=== PATIENT | female | born 1980 | race African-American/Black ===

== ENCOUNTER → 2016-07-31 | Emergency (ER) | payer OTHER ==
[~2016-07-31] MED LIST: CEPHALEXIN MONOHYDRATE 250 MG CAPSULE (FP) ONE; CEPHALEXIN MONOHYDRATE 500 MG CAPSULE (UD) PO ONE; IBUPROFEN 600 MG TABLET (FP) PO ONE; SODIUM CHLORIDE 1,000 ML IV STA; SULFAMETHOXAZOLE/TRIMETHOPRIM 800MG/160MG D.S. TABLET ONE; SULFAMETHOXAZOLE/TRIMETHOPRIM 800MG/160MG D.S. TABLET PO ONE
[2016-07-31 21:42] VITALS: BP 136/77; PULSE 82; TEMP 97.5; BMI 28.0
--- NOTE | 2016-07-31 23:15 | PDOC ---
History of Present Illness - General History Source: Patient Exam Limitations: No Limitations - History of Present Illness Initial Comments: 07/31/16 23:18 The patient is a 35 year old female, with a significant past medical history of anemia, multiple pelvic abscesses, HTN, ARDS, colitis, sepsis, and fibroids who presents to the emergency department with lower abdominal pain and rectal pain for the past week. She ranks her pain a 5/10 in pain intensity. She denies fever, chills, headache and dizziness. She denies nausea, vomit, diarrhea and constipation. Patient is a poor historian. Allergies: NKA Past surgical history: Salpingectomy, Appendectomy, and Myomectomy (October 2015). Social history: Nonsmoker. Denies EtOH use and drug use. PCP: Dr. Styles <Kaleb Pederson - Last Filed: 07/31/16 23:17> <Deloris Trinidad - Last Filed: 08/01/16 02:17> - General Chief Complaint: Pain Stated Complaint: AB PAIN Time Seen by Provider: 07/31/16 21:50 Past History <Kaleb Pederson - Last Filed: 07/31/16 23:17> - Past Medical History Anemia: Yes Asthma: No Cancer: No Cardiac Disorders: No CVA: No COPD: No CHF: No Dementia: No Diabetes: No GI Disorders: No Disorders: No HTN: No Hypercholesterolemia: No Liver Disease: No Seizures: No Thyroid Disease: No - Surgical History Abdominal Surgery: Yes Appendectomy: Yes Cardiac Surgery: No Cholecystectomy: No Lung Surgery: No Neurologic Surgery: No Orthopedic Surgery: No - Immunization History Immunization Up to Date: Yes - Psycho/Social/Smoking Cessation Hx Suicidal Ideation: No Smoking History: Never smoked Have you smoked in the past 12 months: No Number of Cigarettes Smoked Daily: 0 Information on smoking cessation initiated: No Hx Alcohol Use: No Drug/Substance Use Hx: No Substance Use Type: None <Deloris Trinidad - Last Filed: 08/01/16 02:17> - Past Medical History Allergies/Adverse Reactions: Allergies Allergy/AdvReac Type Severity Reaction Status Date / Time No Known Allergies Allergy Verified 07/31/16 21:40 Home Medications: Ambulatory Orders Sulfamethoxazole/Trimethoprim [Bactrim Ds -] 1 tab PO BID #10 tablet 08/01/16 Review of Systems - Review of Systems Able to Perform ROS?: Yes Comments:: 07/31/16 23:17 CONSTITUTIONAL: Absent: fever, chills, diaphoresis, generalized weakness, malaise, loss of appetite HEENT: Absent: rhinorrhea, nasal congestion, throat pain, throat swelling, difficulty swallowing, mouth swelling, ear pain, eye pain, visual Changes CARDIOVASCULAR: Absent: chest pain, syncope, palpitations, irregular heart rate, lightheadedness , peripheral edema RESPIRATORY: Absent: cough, shortness of breath, dyspnea with exertion, orthopnea, wheezing, stridor, hemoptysis GASTROINTESTINAL: Present: abdominal pain and rectal pain. Absent: abdominal distension, nausea, vomiting, diarrhea, constipation, melena, hematochezia GENITOURINARY: Absent: dysuria, frequency, urgency, hesitancy, hematuria, flank pain, genital pain MUSCULOSKELETAL: Absent: myalgia, arthralgia, joint swelling SKIN: Absent: rash, itching, pallor HEMATOLOGIC/IMMUNOLOGIC: Absent: easy bleeding, easy bruising, lymphadenopathy, frequent infections ENDOCRINE: Absent: unexplained weight gain, unexplained weight loss, heat intolerance, cold intolerance NEUROLOGIC: Absent: headache, focal weakness or paresthesias, dizziness, unsteady gait, seizure, mental status changes, bladder or bowel incontinence PSYCHIATRIC: Absent: anxiety, depression, suicidal or homicidal ideation, hallucinations. <Kaleb Pederson - Last Filed: 07/31/16 23:17> *Physical Exam - Vital Signs Last Vital Signs Temp Pulse Resp BP Pulse Ox 97.5 F L 82 14 136/77 99 07/31/16 21:40 07/31/16 21:40 07/31/16 21:40 07/31/16 21:40 07/31/16 21:40 - Physical Exam Comments: 07/31/16 23:18 GENERAL: Well developed, well nourished. Awake and alert. No acute distress. HEENT: Normocephalic, atraumatic. PERRLA, EOMI. No conjunctival pallor. Sclera are non- icteric. Moist mucous membranes. Oropharynx is clear. NECK: Supple. Full ROM. No JVD. Carotid pulses 2+ and symmetric, without bruits. No thyromegaly. No lymphadenopathy. CARDIOVASCULAR: Regular rate and rhythm. No murmurs, rubs, or gallops. Distal pulses are 2+ and symmetric. PULMONARY: No evidence of respiratory distress. Lungs clear to auscultation bilaterally. No wheezing, rales or rhonchi. ABDOMINAL: Soft. Non-tender. Non-distended. No rebound or guarding. No organomegaly. Normoactive bowel sounds. Long midline well healed. No external hemorrhoids appreciated. MUSCULOSKELETAL Normal range of motion at all joints. No bony deformities or tenderness. No CVA tenderness. EXTREMITIES: No cyanosis. No clubbing. No edema. No calf tenderness. SKIN: Warm and dry. Normal capillary refill. No rashes. No jaundice. NEUROLOGICAL: Alert, awake, appropriate. Cranial nerves 2-12 intact. No deficits to light touch and temperature in face, upper extremities and lower extremities. No motor deficits in the in face, upper extremities and lower extremities. Normoreflexic in the upper and lower extremities. Normal speech. Toes are down- going bilaterally. Gait is normal without ataxia. PSYCHIATRIC: Cooperative. Good eye contact. Appropriate mood and affect. <Kaleb Pederson - Last Filed: 07/31/16 23:17> - Vital Signs Last Vital Signs Temp Pulse Resp BP Pulse Ox 97.5 F L 82 14 136/77 99 07/31/16 21:40 07/31/16 21:40 07/31/16 21:40 07/31/16 21:40 07/31/16 21:40 <Deloris Trinidad - Last Filed: 08/01/16 02:17> ED Treatment Course - LABORATORY CBC & Chemistry Diagram: 07/31/16 23:55 08/01/16 00:01 <Deloris Trinidad - Last Filed: 08/01/16 02:17> Medical Decision Making - Medical Decision Making 08/01/16 00:56 35 yo female presents because she has had 1 week of rectal pain-she denies any bleeding,any trauma,denies hemorrhoids -she also has a vague complaint of abdominal pain -she has a soft abdomen w no rebound or guarding -rectal exam-normal tone,no bleeding,no hemorrhoids no constitutional symptoms -no fever,no chills,no vomiting,no diarrhea,no severe pelvic pain 08/01/16 02:11 reviewed abd film no evidence of sbo,no fecal impaction cbc wnl chemistry wnl ua neg preg neg -pt told to return if her pain becomes worse or if it becomes focal, if she dev a fever or persistence vomiting <Deloris Trinidad - Last Filed: 08/01/16 02:17> *DC/Admit/Observation/Transfer - Attestations Scribe Attestion: 07/31/16 23:18 Documentation prepared by Kaleb Pederson, acting as special forces medical sergeant for Deloris Trinidad MD. 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
[2016-08-01 00:16] LABS: BASOPHIL 0.6 % (0-2.0); EOSINOPHIL 5.6 % (0-4.5); MCH 28.7 pg (25.7-33.7); MCHC 33.6 g/dl (32.0-36.0); MEAN CELL VOLUME 85.4 fl (80-96); MEAN PLT VOLUME 8.2 fl (7.5-11.1); NEUTROPHILS 49.1 % (42.8-82.8); PLATELET COUNT 223 K/MM3 (134-434); RDW 12.8 % (11.6-15.6); WHITE BLOOD COUNT 5.9 K/mm3 (4.0-10.0)
[2016-08-01 00:32] LABS: URINE APPEARANCE CLEAR; URINE BILIRUBIN NEGATIVE (NEGATIVE); URINE COLOR STRAW; URINE GLUCOSE (UA) NEGATIVE (NEGATIVE); URINE KETONE NEGATIVE (NEGATIVE); URINE NITRITE NEGATIVE (NEGATIVE); URINE PROTEIN NEGATIVE (NEGATIVE); URINE UROBILINOGEN NEGATIVE E.U./dl (0.2-1.0)
[2016-08-01 00:36] LABS: URINE BLOOD 2+ (NEGATIVE); URINE LEUK ESTERASE 1+ (NEGATIVE)
[2016-08-01 00:54] LABS: URINE BACTERIA RARE /hpf (NONE SEEN); URINE RBC 2 /hpf (0-3); URINE WBC 10 /hpf (3-5)
[2016-08-01 01:00] LABS: ALBUMIN 3.6 g/dl (3.4-5.0); ANION GAP 10 (8-16); BILIRUBIN,TOTAL 0.3 mg/dL (0.2-1.0); CALCIUM 8.3 mg/dL (8.5-10.1); CO2 28 mmol/L (21-32); CREATININE 0.8 mg/dL (0.55-1.02); GLUCOSE,RANDOM 96 mg/dL (74-106); SGOT/AST 12 U/L (15-37); SGPT/ALT 15 U/L (12-78); TOT PROT 6.7 g/dl (6.4-8.2)
[2016-08-01 01:01] LABS: ALK PHOS 49 U/L (45-117)
== END | disposition home or self-care (01) ==
LOC: JER 21:22
PROC: 3E0337Z Introduction of Electrolytic and Water Balance Substance into Peripheral Vein, Percutaneous Approach (ICD-10-PCS; principal; 2016-07-31)
DX: K62.89 Other specified diseases of anus and rectum (principal); R10.30 Lower abdominal pain, unspecified
CPT/HCPCS: 36415; 74020-TC; 80053; 81003; 81015; 84703; 85025; 96360; 99282-25

== ENCOUNTER 2018-06-20 16:55 | Emergency (ER) | payer OTHER ==
[2018-06-20 16:58] VITALS: BP 118/69; PULSE 107; TEMP 100.2; BMI 27.3
[2018-06-20] MEDS ORDERED: IBUPROFEN 400 MG TABLET (FP) PO ONE ×2 (17:10→17:22)
--- NOTE | 2018-06-20 17:31 | PDOC ---
History of Present Illness - General Chief Complaint: Cold Symptoms Stated Complaint: COLD SYMPTOMS Time Seen by Provider: 06/20/18 17:00 History Source: Patient Exam Limitations: No Limitations - History of Present Illness Initial Comments: 06/20/18 17:29 37 yr female with headache fever, body aches, sore throat started yesterday. no meds taken [place] [facility]. no foreign travel or sick contacts. no PMHX. Past History - Past Medical History Allergies/Adverse Reactions: Allergies Allergy/AdvReac Type Severity Reaction Status Date / Time No Known Allergies Allergy Verified 06/20/18 16:57 Home Medications: Ambulatory Orders NK [No Known Home Medication] 06/20/18 Anemia: Yes Asthma: No Cancer: No Cardiac Disorders: No CVA: No COPD: No CHF: No Dementia: No Diabetes: No GI Disorders: No Disorders: No HTN: No Hypercholesterolemia: No Liver Disease: No Seizures: No Thyroid Disease: No - Surgical History Abdominal Surgery: Yes Appendectomy: Yes Cardiac Surgery: No Cholecystectomy: No Lung Surgery: No Neurologic Surgery: No Orthopedic Surgery: No - Immunization History Immunization Up to Date: Yes - Suicide/Smoking/Psychosocial Hx Smoking History: Never smoked Have you smoked in the past 12 months: No Number of Cigarettes Smoked Daily: 0 Hx Alcohol Use: No Drug/Substance Use Hx: No Substance Use Type: None Respiratory Specific PMHX - Complaint Specific PMHX Angina: No Bronchitis: No Pneumonia: No Pulmonary Embolus: No TB (Tuberculosis): No Review of Systems - Review of Systems Able to Perform ROS?: Yes Is the patient limited [place] proficient: No Constitutional: Yes: Symptoms Reported HEENTM: Yes: Symptoms Reported Respiratory: No: Symptoms reported Cardiac (ROS): No: Symptoms Reported ABD/GI: No: Symptoms Reported : No: Symptoms Reported Musculoskeletal: Yes: Symptoms Reported *Physical Exam - Vital Signs Last Vital Signs Temp Pulse Resp BP Pulse Ox 100.2 F H 107 H 18 118/69 100 06/20/18 16:57 06/20/18 16:57 06/20/18 16:57 06/20/18 16:57 06/20/18 16:57 - Physical Exam General Appearance: Yes: Nourished, Appropriately Dressed HEENT: positive: EOMI, JEAN, Pharyngeal Erythema. negative: Tonsillar Exudate, Tonsillar Erythema Neck: positive: Supple, Other (FROM). negative: Tender, Decreased range of motion, Lymphadenopathy (R), Lymphadenopathy (L), Rigidity, Tender lateral, Tender midline Respiratory/Chest: positive: Lungs Clear, Normal Breath Sounds Cardiovascular: positive: Regular Rhythm, Regular Rate Gastrointestinal/Abdominal: positive: Normal Bowel Sounds, Soft. 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 intact, Fully Oriented, Alert, Normal Mood/ Affect, Normal Response, Motor Strength 5/5 Moderate Sedation - Procedure Monitoring Vital Signs: Procedure Monitoring Vital Signs Temperature 100.2 F H 06/20/18 16:57 Pulse Rate 107 H 06/20/18 16:57 Respiratory Rate 18 06/20/18 16:57 Blood Pressure 118/69 06/20/18 16:57 O2 Sat by Pulse Oximetry (%) 100 06/20/18 16:57 ED Treatment Course - Medications Given in the ED: ED Medications Discontinued Medications Generic Name Dose Route Start Last Admin Trade Name Juan Miguel PRN Reason Stop Dose Admin Ibuprofen 800 mg 06/20/18 17:10 06/20/18 17:23 Motrin - PO 06/20/18 17:11 800 mg ONCE ONE Administration Medical Decision Making - Medical Decision Making 06/20/18 17:30 cc: flu like symptoms started suddenly last night neg nvd neg urine complaints will check for flu, strep, motrin now stable vitals no acute distress 06/20/18 18:15 pt feels better after motrin negative flu negative strep *DC/Admit/Observation/Transfer Diagnosis at time of Disposition: Flu-like symptoms - Discharge Dispostion Disposition: HOME Condition at time of disposition: Good - Referrals - Patient Instructions Printed Discharge Instructions: DI for Viral Upper Respiratory Infection-Child Additional Instructions: drink pleanty of fluids negative for Influenza and negative strep, rest at home take ibuprofen 800mg every 8hrs for pain or fever or body aches you can also take tylenol 650mg every 4-6hrs for fever or body aches follow with your doctor in 1-2 days if not improving Return to ER for any worsening symptoms - Post Discharge Activity
== END 2018-06-20 18:18 | disposition home or self-care (01) ==
LOC: JERFT 16:55
DX: J11.1 Influenza due to unidentified influenza virus with other respiratory manifestations (principal)
CPT/HCPCS: 87070; 87804; 87880; 99281-25

== ENCOUNTER 2018-12-15 15:02 | Emergency (ER) | payer OTHER ==
[2018-12-15 15:06] VITALS: BP 121/79; PULSE 87; TEMP 98.3
--- NOTE | 2018-12-15 16:14 | PDOC ---
History of Present Illness - General Chief Complaint: Pain Stated Complaint: ABD. PAIN Time Seen by Provider: 12/15/18 15:34 History Source: Patient Exam Limitations: No Limitations - History of Present Illness Travel History: No Initial Comments: 12/15/18 16:28 38 y/o female presents to ED with complaints of lower abdominal cramping since yesterday associated brown watery diarrhea 2 associated vomiting 3. Patient denies recent travel recent illness associate recent sick contacts. Timing/Duration: reports: constant Quality: reports: mild, cramping Abdominal Pain Onset Location: reports: RLQ, LLQ Pain Radiation: denies: no radiation Aggravating Factors: improves with: None Alleviating Factors: improves with: None Past History - Travel Traveled outside of the country in the last 30 days: No Close contact w/someone who was outside of country & ill: No - Past Medical History Allergies/Adverse Reactions: Allergies Allergy/AdvReac Type Severity Reaction Status Date / Time No Known Allergies Allergy Verified 06/20/18 16:57 Home Medications: Ambulatory Orders NK [No Known Home Medication] 06/20/18 Anemia: Yes Asthma: No Cancer: No Cardiac Disorders: No CVA: No COPD: No CHF: No Dementia: No Diabetes: No GI Disorders: No Disorders: No HTN: No Hypercholesterolemia: No Liver Disease: No Seizures: No Thyroid Disease: No - Surgical History Abdominal Surgery: Yes Appendectomy: Yes Cardiac Surgery: No Cholecystectomy: No Lung Surgery: No Neurologic Surgery: No Orthopedic Surgery: No - Immunization History Immunization Up to Date: Yes - Suicide/Smoking/Psychosocial Hx Smoking History: Never smoked Have you smoked in the past 12 months: No Number of Cigarettes Smoked Daily: 0 Hx Alcohol Use: No Drug/Substance Use Hx: No Substance Use Type: None Patient Lives Alone: No Lives with/in: spouse/SO Review of Systems - Review of Systems Able to Perform ROS?: Yes Constitutional: No: Symptoms Reported HEENTM: No: Symptoms Reported Respiratory: No: Symptoms reported Cardiac (ROS): No: Symptoms Reported ABD/GI: Yes: Diarrhea, Abdominal cramping : No: Symptoms Reported Musculoskeletal: No: Symptoms Reported Integumentary: No: Symptoms Reported Neurological: No: Symptoms reported *Physical Exam - Vital Signs Last Vital Signs Temp Pulse Resp BP Pulse Ox 98.3 F 87 18 121/79 100 12/15/18 15:03 12/15/18 15:03 12/15/18 15:03 12/15/18 15:03 12/15/18 15:03 - Physical Exam General Appearance: Yes: Nourished, Appropriately Dressed. No: Apparent Distress HEENT: negative: Pale Conjunctivae Respiratory/Chest: positive: Lungs Clear, Normal Breath Sounds. negative: Respiratory Distress, Accessory Muscle Use Cardiovascular: positive: Regular Rhythm, Regular Rate. negative: Murmur Gastrointestinal/Abdominal: positive: Soft, Tenderness (llq and rlq) Musculoskeletal: negative: CVA Tenderness Integumentary: positive: Normal Color, Warm, Moist Neurologic: positive: Motor Strength 5/5 (ambulatory) ED Treatment Course - LABORATORY CBC & Chemistry Diagram: 12/15/18 17:13 12/15/18 17:13 Medical Decision Making - Medical Decision Making 12/15/18 16:21 CC: Lower abdominal cramping for the past 2 days associated with brown watery diarrhea and vomiting 3. Patient denies fever, chills, nausea, urinary complaints but states has had intermittent diarrhea in the past but normally it only lasted about a day. patient denies recent travel or recent sick contacts. Exam: Lower abdominal tenderness mainly in the left lower quadrant associated with diarrhea 2 and vomiting 4 since yesterday aortic Plan: Labs, urine, and medication 12/15/18 18:02 Laboratory Tests 12/15/18 16:55 Ur Leukocyte Esterase 2+ H Urine WBC (Auto) 14 Urine RBC (Auto) 3 Urine HCG, Qual Negative Patient just mentioned she recently finished a liquid diet for the past week and had similar symptoms of nausea and diarrhea along with cramping during last diet. Patient requesting Motrin for cramping. Patient will be discharged home with Zofran and will be notified if urine culture is positive for infection since she has no complaints of urinary discomfort frequency or hematuria *DC/Admit/Observation/Transfer Diagnosis at time of Disposition: Nausea & vomiting - Discharge Dispostion Disposition: HOME Condition at time of disposition: Improved - Referrals - Patient Instructions Printed Discharge Instructions: DI for Diarrhea and Traveler's Diarrhea -- Adult Additional Instructions: please follow a bland diet for the next 48 hours. Take Zofran as needed for nausea. If your urine shows an infection we will call you in 48 hours - Post Discharge Activity
[2018-12-15 17:19] LABS: EPI CELLS 8.1 /HPF (0-5/HPF); HYALINE CASTS 12 /lpf (0-8); PH,URINE 5.5 (5.0-8.0); URINE APPEARANCE CLEAR; URINE BACTERIA 300.1 /hpf (NEGATIVE); URINE BILIRUBIN NEGATIVE (NEGATIVE); URINE COLOR YELLOW; URINE GLUCOSE (UA) NEGATIVE (NEGATIVE); URINE KETONE 2+ (NEGATIVE); URINE LEUK ESTERASE 2+ (NEGATIVE); URINE NITRITE NEGATIVE (NEGATIVE); URINE PROTEIN TRACE (NEGATIVE); URINE RBC 3 /hpf (0-4); URINE WBC 14 /hpf (0-5)
[2018-12-15 17:25] LABS: BASO % 0.4 % (0-2.0); EOS % 3.2 % (0-4.5); HEMATOCRIT 39.7 % (32.4-45.2); HEMOGLOBIN 13.2 GM/dL (10.7-15.3); LYMPH % 26.4 % (8-40); MCH 29.3 pg (25.7-33.7); MCHC 33.2 g/dl (32.0-36.0); MEAN CELL VOLUME 88.3 fl (80-96); MEAN PLT VOLUME 8.9 fl (7.5-11.1); MONO % 7.7 % (3.8-10.2); NEUT % 62.3 % (42.8-82.8); PLATELET COUNT 216 K/MM3 (134-434); RDW 14.2 % (11.6-15.6); WHITE BLOOD COUNT 6.8 K/mm3 (4.0-10.0)
[2018-12-15 17:30] LABS: HCG,QUALITATIVE URINE Negative
[2018-12-15] MEDS ORDERED: ONDANSETRON *ODT* 4 MG TABLET SL ONE (17:30)
[2018-12-15 17:47] LABS: ALBUMIN 4.3 g/dl (3.4-5.0); BILIRUBIN,TOTAL 0.6 mg/dL (0.2-1); BLOOD UREA NITROGEN 14.2 mg/dL (7-18); CALCIUM 9.4 mg/dL (8.5-10.1); CREATININE 0.8 mg/dL (0.55-1.3); MAGNESIUM 2.4 mg/dL (1.8-2.4); POTASSIUM 4.6 mmol/L (3.5-5.1); TOT PROT 8.1 g/dl (6.4-8.2)
[2018-12-15] MEDS ORDERED: IBUPROFEN 600 MG TABLET (FP) PO ONE ×2 (18:00→18:28)
[2018-12-15] MEDS ORDERED: ONDANSETRON *ODT* 4 MG TABLET ONE (18:28)
== END 2018-12-15 18:30 | disposition home or self-care (01) ==
LOC: JER 15:02
DX: R11.2 Nausea with vomiting, unspecified (principal); R19.7 Diarrhea, unspecified
CPT/HCPCS: 36415; 80053; 81003; 83690; 83735; 84703; 85025; 87086; 99281-25; Q0162

== ENCOUNTER 2018-12-15 23:49 | Inpatient (IN) | payer OTHER ==
--- NOTE | 2018-12-16 02:36 | PDOC ---
Attending Attestation - Resident Resident Name: Shagufta Lopez - ED Attending Attestation I have performed the following: I have examined & evaluated the patient, The case was reviewed & discussed with the resident, I agree w/resident's findings & plan - HPI HPI: 12/20/18 19:41 38yo with salpingectomy, appendectomy ; laparotomy with lysis of adhesionsin the past. Now having lower abdominal pain, nauseax 2 days. She was seen here in the ED this afternoon for the same symptoms and had normal blood w/u but UA notable for 2+ LE and 300 bacteria (fairly clean sample). The patient says she went home and the pain began to worsen, so she came back. She notes continued nausea, and states she vomited twice in the past 24 hours. Denies any vaginal bleeding or discharge. LMP was 11/23/18. Pt is not in great distress, but also doesn't look well. We are concerned that she may have an SBO. - Physicial Exam PE: 12/20/18 19:44 Agree with resident exam. Afebrile at this time. Pt has abnormal sounding bowel sounds. She has tenderness that is diffuse but mild to moderate. Most importantly, pain is not remitting. - Medical Decision Making 12/20/18 19:47 CT/ABDOMEN PELVIS CT WITH CONTR Clinical history: 38-year-old woman with dominant pain. Rule out obstruction. Comparison: 11/16/2015. Contiguous transaxial images were obtained from the diaphragmatic domes and pubic symphysis after the administration of IV contrast. Sagittal and coronal reconstructions were performed. Lung bases: Small right fissural nodules most likely small intrapulmonary lymph nodes. Mild atelectasis. Bone: Negative. There is mild ascites. Liver: There is hepatomegaly with an element of a fatty liver. Gallbladder: Negative. Biliary tree: Negative. Spleen: Borderline to mild splenomegaly. Pancreas: Negative. Adrenals: Negative. Kidneys: Negative. Pelvis: Prominent uterus with small calcifications. Normal bladder distention. Bowel: There are distended loops of small bowel up to 4 cm with fecalization in the small bowel in the right mid to lower abdomen. Umbilical laxity of the midline rectus fascia with a distended loop of small bowel in that region. This could be the area of obstruction. There is retention of stool. Other:: Hiatal hernia. Impression: Findings are consistent with small bowel obstruction as described. Mild ascites. No free air seen. Retention of stool. Possible fibroid uterus with mass. Correlate with nonemergent pelvic sonography. Other findings as above. Clinical correlation advised. Dr. Pena of surgery made aware. NGT placed and confirmed on XR
--- NOTE | 2018-12-16 02:42 | PDOC ---
Attending Attestation - Resident Resident Name: Shagufta Lopez - ED Attending Attestation I have performed the following: I have examined & evaluated the patient, The case was reviewed & discussed with the resident, I agree w/resident's findings & plan
[2018-12-16] MEDS ORDERED: ACETAMINOPHEN 500 MG TABLET (FP) PO ONE (02:55)
[2018-12-16] MEDS ORDERED: ACETAMINOPHEN 325 MG TABLET (FP) ONE (03:04)
--- NOTE | 2018-12-16 03:28 | PDOC ---
History of Present Illness - General Chief Complaint: Pain Stated Complaint: ABDOMEN PAIN Time Seen by Provider: 12/16/18 02:31 History Source: Patient Exam Limitations: No Limitations - History of Present Illness Initial Comments: 12/16/18 02:51 [id number] with h/o salpingectomy, appendectomy (with intraperitoneal abscess), laparotomy with lysis of adhesions, who p/w vague lower abdominal pain, nausea, and NBNB for the past 2 days now. She was seen here in the ED this afternoon for the same symptoms and had normal blood w/u but UA notable for 2+ LE and 300 bacteria (fairly clean sample). The patient says she went home and the pain began to worsen, so she came back. She notes continued nausea, and states she vomited twice in the past 24 hours. Denies any vaginal bleeding or discharge. LMP was 11/23/18. Past History - Past Medical History Allergies/Adverse Reactions: Allergies Allergy/AdvReac Type Severity Reaction Status Date / Time No Known Allergies Allergy Verified 12/16/18 00:22 Home Medications: Ambulatory Orders NK [No Known Home Medication] 12/16/18 Anemia: Yes Asthma: No Cancer: No Cardiac Disorders: No CVA: No COPD: No CHF: No Dementia: No Diabetes: No GI Disorders: No Disorders: No HTN: No Hypercholesterolemia: No Liver Disease: No Seizures: No Thyroid Disease: No - Surgical History Abdominal Surgery: Yes Appendectomy: Yes Cardiac Surgery: No Cholecystectomy: No Lung Surgery: No Neurologic Surgery: No Orthopedic Surgery: No - Immunization History Immunization Up to Date: Yes - Suicide/Smoking/Psychosocial Hx Smoking History: Never smoked Have you smoked in the past 12 months: No Number of Cigarettes Smoked Daily: 0 Hx Alcohol Use: No Drug/Substance Use Hx: No Substance Use Type: None Review of Systems - Review of Systems Able to Perform ROS?: Yes Comments:: 12/16/18 03:29 GEN: no fever, chills, malaise, generalized weakness, or weight change HEENT: no ear pain, sore throat, vision change, or eye pain CV: no chest pain, palpitations, lightheadedness, syncope, or edema RESP: no cough, wheezing, or SOB GI: abdominal pain, nausea, vomiting, no diarrhea, constipation, or white/black/ bloody stool : no dysuria, hematuria, incontinence, retention, bleeding, or discharge MSK: no neck/back pain, muscle weakness/pain, or joint swelling/pain NEURO: no headache, seizure, vertigo, numbness, tingling, or focal weakness PSYCH: no substance use, no behavior change SKIN: no jaundice, no rash ROS otherwise negative except as noted in HPI *Physical Exam - Vital Signs Last Vital Signs Temp Pulse Resp BP Pulse Ox 98.5 F 69 18 133/76 100 12/16/18 00:20 12/16/18 00:20 12/16/18 00:20 12/16/18 00:20 12/16/18 00:20 - Physical Exam Comments: 12/16/18 03:50 GENERAL: nontoxic-appearing, a bit bizarre, stoic, A/Ox4, no distress, answers questions appropriately HEENT: PERRLA, EOMI, moist mucous membranes NECK/BACK: no midline ttp, no spinal stepoff or deformity, no hematoma, full ROM , neck supple CARDIOVASCULAR: regular rate/rhythm, normal S1S2, no MGR, strong peripheral pulses, capillary refill <2 seconds, extremities wwp, no edema LUNGS/RESPIRATORY: no respiratory distress, CTAB GI/ABDOMEN: symmetric [id number], normoactive BS, soft, no ttp, no midline pulsatile masses : no CVA tenderness EXTREMITIES: no muscle atrophy, no acute deformity SKIN: warm and dry, no pallor, no jaundice, no rash, no bruising, no skin breakdown, no cuts, no lesions NEUROLOGICAL: GCS 15, CN II-XII grossly intact, 5/5 strength proximally and distally, no facial droop ED Treatment Course - LABORATORY CBC & Chemistry Diagram: 12/16/18 07:45 12/16/18 07:45 Medical Decision Making - Medical Decision Making 12/16/18 03:51 [id number] p/w vague lower abdominal pain, n/v. Initial Vital Signs Temp Pulse Resp BP Pulse Ox 98.5 F 69 18 133/76 100 12/16/18 00:20 12/16/18 00:20 12/16/18 00:20 12/16/18 00:20 12/16/18 00:20 Exam: As noted in Physical Exam section. DDX IBNLT: UTI/pyelonephritis, diverticulitis wwo abscess or perforation, colitis, ovarian torsion, PID, TOA, ovarian cyst, malignancy, hernia, AAA/AD, pancreatitis, appendicitis, gastritis, PUD, ACS, renal colic, SBO, bowel ischemia, bowel perforation, cholecystitis, musculoskeletal, constipation, etc. W/U ordered: Flu swab, CT A/P with IV contrast TX ordered: None at this time Labs from visit ~12 hours ago reviewed 12/16/18 06:55 CT A/P with IV contrast: C/F high grade SBO. CT/ABDOMEN PELVIS CT WITH CONTR Clinical history: 38-year-old woman with dominant pain. Rule out obstruction. Comparison: 11/16/2015. Contiguous transaxial images were obtained from the diaphragmatic domes and pubic symphysis after the administration of IV contrast. Sagittal and coronal reconstructions were performed. Lung bases: Small right fissural nodules most likely small intrapulmonary lymph nodes. Mild atelectasis. Bone: Negative. There is mild ascites. Liver: There is hepatomegaly with an element of a fatty liver. Gallbladder: Negative. Biliary tree: Negative. Spleen: Borderline to mild splenomegaly. Pancreas: Negative. Adrenals: Negative. Kidneys: Negative. Pelvis: Prominent uterus with small calcifications. Normal bladder distention. Bowel: There are distended loops of small bowel up to 4 cm with fecalization in the small bowel in the right mid to lower abdomen. Umbilical laxity of the midline rectus fascia with a distended loop of small bowel in that region. This could be the area of obstruction. There is retention of stool. Other:: Hiatal hernia. Impression: Findings are consistent with small bowel obstruction as described. Mild ascites. No free air seen. Retention of stool. Possible fibroid uterus with mass. Correlate with nonemergent pelvic sonography. Other findings as above. Clinical correlation advised. The study was initially read by Sarika. 12/16/18 07:08 The patient needs admission and surgical consult. [facility] is sent to [facility] for admission. Blank Decision to Admit order is placed per ED protocol. Call is placed to on-call surgeon with [facility]. 12/16/18 07:[address] Pena; NG tube placed and placement XR ordered. Pre-op labs ordered and 2 liter bolus ordered; RN informed. RAD/CHEST X-RAY PORTABLE* Chest: Check NG tube placement Single live the chest reveals clear lungs, normal rhythm and sharp angles. The bones and soft tissues are intact. An NG tube has been inserted and the tip is in the stomach. Correlation recommended. Impression NG tube tip in stomach. *DC/Admit/Observation/Transfer Diagnosis at time of Disposition: SBO (small bowel obstruction) - Discharge Dispostion Condition at time of disposition: Guarded Decision to Admit order: Yes - Referrals - Patient Instructions - Post Discharge Activity
[2018-12-16] MEDS ORDERED: SODIUM CHLORIDE 0.9% 500 ML INFUS.BAG IV ONE (07:32)
--- NOTE | 2018-12-16 08:13 | HP ---
CHIEF COMPLAINT: NBNB emesis, abdom pain x 2 days PCP: Dr. Edwards HISTORY OF PRESENT ILLNESS: 38 y/o F with PMH s/p salpingectomy/myomectomy/appendectomy w/intraperitoneal loculated abscesses (drained) 2015, laparotomy w/lysis of adhesions, who presents to the ED c/o lower abdominal pain and NBNB emesis for the past two days. As per pt, 8 days prior to her sx development, she had been on a one week liquid diet for wt loss. States that she had just transitioned to solid foods the day before her sx began. States she had vague RLQ,LLQ abdominal pain that was intermittent, and 4-5/10. Mentions that pain was tolerable. Last BM was yesterday and it was regular. Denies TORRES, fever, chills, SOB, chest pain or pressure or changes in urinary or bowel function. Was initially in the ED yesterday afternoon for the same complaints (nausea, abdominal pain). Pt was also found to have a UA with 2+ leuk, 14 WBC, 300 bacteria however since she was not symptomatic, she was told that once her ucx returned she would be called with results. Was d/c home on zofran. Pt returned to ED since her sx continued. ER course was notable for: (1) tylenol 975mg PO (2) started on 2L NS (3) NGT (4) Dr. 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 family Smoking: denies Alcohol:denies Drugs: denies Family History: denies Allergies No Known Allergies Allergy (Verified 12/16/18 00:22) HOME MEDICATIONS: Home Medications Medication Instructions Recorded Ondansetron HCl [Zofran] 4 mg PO TID PRN #12 tablet 12/15/18 confirmed pt does not take home meds zofran was from her earlier d/c from ED REVIEW OF SYSTEMS CONSTITUTIONAL: Absent: fever, chills, diaphoresis, generalized weakness, malaise, loss of appetite, weight change HEENT: Absent: rhinorrhea, nasal congestion, throat pain, throat swelling, difficulty swallowing, mouth swelling, ear pain, eye pain, visual changes CARDIOVASCULAR: Absent: chest pain, syncope, palpitations, irregular heart rate, lightheadedness , peripheral edema RESPIRATORY: Absent: cough, shortness of breath, dyspnea with exertion, orthopnea, wheezing, stridor, hemoptysis GASTROINTESTINAL: Absent: abdominal pain, abdominal distension, nausea, vomiting, diarrhea, constipation, melena, hematochezia GENITOURINARY: Absent: dysuria, frequency, urgency, hesitancy, hematuria, flank pain, genital pain MUSCULOSKELETAL: Absent: myalgia, arthralgia, joint swelling, back pain, neck pain SKIN: Absent: rash, itching, pallor HEMATOLOGIC/IMMUNOLOGIC: Absent: easy bleeding, easy bruising, lymphadenopathy, frequent infections ENDOCRINE: Absent: unexplained weight gain, unexplained weight loss, heat intolerance, cold intolerance NEUROLOGIC: Absent: headache, focal weakness or paresthesias, dizziness, unsteady gait, seizure, mental status changes, bladder or bowel incontinence PSYCHIATRIC: Absent: anxiety, depression, suicidal or homicidal ideation, hallucinations. PHYSICAL EXAMINATION Vital Signs - 24 hr 12/16/18 00:20 Temperature 98.5 F Pulse Rate 69 Respiratory 18 Rate Blood Pressure 133/76 O2 Sat by Pulse 100 Oximetry (%) GENERAL: Pleasant. +NGT in NAD HEAD: Normal with no signs of trauma. EYES: Pupils equal, round and reactive to light, extraocular movements intact, sclera anicteric, conjunctiva clear. EARS, NOSE, THROAT: Ears normal, nares patent, oropharynx clear without exudates. Moist mucous membranes. NECK: Normal range of motion, supple LUNGS: Breath sounds equal, clear to auscultation bilaterally. No wheezes, and no crackles. No accessory muscle use. HEART: Regular rate and rhythm, normal S1 and S2 without murmur, rub or gallop. ABDOMEN: Soft, obese, nontender, not distended, +hypoactive bowel sounds, no guarding LOWER EXTREMITIES: 2+ pt pulses, warm, well-perfused. No calf tenderness. No peripheral edema. NEUROLOGICAL: Cranial nerves II-XII intact. Normal speech. PSYCHIATRIC: Cooperative. Good eye contact. Laboratory Results 12/16/18 02:53 Influenza A (Rapid) Negative Influenza B (Rapid) Negative 12/15/18 12/15/18 12/15/18 16:55 17:13 17:13 WBC 6.8 Hgb 13.2 Hct 39.7 Plt Count 216 PT with INR Sodium 138 Potassium 4.6 Chloride 106 Carbon Dioxide 27 Anion Gap 6 L BUN 14.2 Creatinine 0.8 Lactic Acid AST 16 ALT 15 Alkaline Phosphatase 61 Lipase 76 Ur Leukocyte Esterase 2+ H Urine WBC (Auto) 14 Urine RBC (Auto) 3 Urine Bacteria (Auto) 300.1 12/16/18 12/16/18 12/16/18 07:45 07:45 07:52 WBC 5.4 Hgb 13.2 Hct 39.1 Plt Count 190 PT with INR 14.80 H INR 1.25 H Potassium Creatinine Lactic Acid Pending EKG: requested, pending CTAP prelim: SBO w/ small bowel dilated to 4.2cm - small amt ascites. no free air, no abscess. transition point deep to umbilicus 2/2 adhesions. focal 9cm mass adjacent to uterus w/ sig calcification- fibroid. High grade SBO. however await official read ASSESSMENT/PLAN: 38 y/o F with PMH s/p salpingectomy/myomectomy/appendectomy w/intraperitoneal loculated abscesses (drained) 2015, laparotomy w/lysis of adhesions, who presents to the ED c/o lower abdominal pain and NBNB emesis for the past two days. #High grade SBO likely 2/2 adhesions -afebrile, no leukocytosis. lactic WNL -NGT placed, intermittent wall suction -NPO -IV LR 125 cc/hr. check output and adjust accordingly -replace lytes -currently not in pain. can give IV Tylenol PRN if needed -EKG pending. check qtc then can place on antiemetics PRN -T+S, coags in case of OR -sx consult: Dr. Pena. called by ED #F/E/N IV LR 125 cc/hr continue to follow lytes NPO #PPX DVT: SCD's in case of OR #Dispo admit to med-surg Visit type - Emergency Visit Emergency Visit: Yes ED Registration Date: 12/16/18 Care time: The patient presented to the Emergency Department on the above date and was hospitalized for further evaluation of their emergent condition. - New Patient This patient is new to me today: Yes Date on this admission: 12/16/18 - Critical Care Critical Care patient: No
[2018-12-16 08:14] LABS: BASO % 0.5 % (0-2.0); EOS % 3.9 % (0-4.5); HEMATOCRIT 39.1 % (32.4-45.2); HEMOGLOBIN 13.2 GM/dL (10.7-15.3); LYMPH % 35.6 % (8-40); MCH 29.5 pg (25.7-33.7); MCHC 33.7 g/dl (32.0-36.0); MEAN CELL VOLUME 87.6 fl (80-96); MEAN PLT VOLUME 9.6 fl (7.5-11.1); MONO % 9.4 % (3.8-10.2); NEUT % 50.6 % (42.8-82.8); PLATELET COUNT 190 K/MM3 (134-434); RBC 4.47 M/mm3 (3.60-5.2); RDW 14.2 % (11.6-15.6); WHITE BLOOD COUNT 5.4 K/mm3 (4.0-10.0)
[2018-12-16] MEDS ORDERED: LACTATED RINGERS SOLUTION 1,000 ML IV SCH (08:15)
[2018-12-16 08:32] LABS: INR 1.25 (0.83-1.09); PROTHROMBIN TIME (PATIENT) 14.8 SEC (9.7-13.0)
[2018-12-16 08:45] LABS: ALBUMIN 4.3 g/dl (3.4-5.0); BILIRUBIN,TOTAL 0.6 mg/dL (0.2-1); BLOOD UREA NITROGEN 13.7 mg/dL (7-18); CALCIUM 9.4 mg/dL (8.5-10.1); CREATININE 0.9 mg/dL (0.55-1.3); MAGNESIUM 2.4 mg/dL (1.8-2.4); PHOSPHOROUS 4.5 mg/dL (2.5-4.9); TOT PROT 8.1 g/dl (6.4-8.2)
--- NOTE | 2018-12-16 09:53 | PN ---
Teaching Attending Note Name of Resident: Simi Chou ATTENDING PHYSICIAN STATEMENT I saw and evaluated the patient. I reviewed the resident's note and discussed the case with the resident. I agree with the resident's findings and plan as documented. SUBJECTIVE: This is a 38 year old woman with a history of uterine fibroid; tubo- ovarian abscess; laparotomy 11/17/15 with evacuation of pelvic abscesses, bilateral salpingectomy, left oophorectomy, myomectomy, appendectomy; laparotomy w/lysis of adhesions who comes to the ED complaining of lower abdominal pain with nausea and vomiting for two days. She came to the ED yesterday, was found to have an abnormal UA, and was discharged with Zofran. She returned today because she did not feel any better. She had been on a juicing diet for weight loss for 1 week and had started solid food the day before the symptoms started. Her last BM was normal yesterday morning. She denies fever, chills, hematemesis, melena, rectal bleeding, hematuria, dysuria. Today, CT was consistent with high-grade SBO. An NGT was inserted in the ED. OBJECTIVE: Vital Signs Period Temp Pulse Resp BP Sys/Gutierres Pulse Ox Last 24 Hr 98.5 F 69-75 18-18 120-133/76-76 100-100 HEART: S1S2, RRR LUNGS: Clear ABDOMEN: Soft, non-distended, non-tender, hypoactive BS EXTREMITIES: No edema Laboratory Tests 12/16/18 12/16/18 12/16/18 02:53 07:45 07:45 WBC 5.4 RBC 4.47 Hgb 13.2 Hct 39.1 MCV 87.6 MCH 29.5 MCHC 33.7 RDW 14.2 Plt Count 190 MPV 9.6 Absolute Neuts (auto) 2.7 Neutrophils % 50.6 Lymphocytes % 35.6 D Monocytes % 9.4 Eosinophils % 3.9 Basophils % 0.5 Nucleated RBC % 0 PT with INR 14.80 H INR 1.25 H PTT (Actin FS) Sodium Potassium Chloride Carbon Dioxide Anion Gap BUN Creatinine Est GFR (CKD-EPI)AfAm Est GFR (CKD-EPI)NonAf Random Glucose Lactic Acid Calcium Phosphorus Magnesium Total Bilirubin AST ALT Alkaline Phosphatase Total Protein Albumin Lipase Serum , Qual Influenza A (Rapid) Negative Influenza B (Rapid) Negative 12/16/18 12/16/18 12/16/18 07:45 07:45 07:52 WBC RBC Hgb Hct MCV MCH MCHC RDW Plt Count MPV Absolute Neuts (auto) Neutrophils % Lymphocytes % Monocytes % Eosinophils % Basophils % Nucleated RBC % PT with INR INR PTT (Actin FS) 36.0 Sodium 139 Potassium 4.0 Chloride 105 Carbon Dioxide 25 Anion Gap 8 BUN 13.7 Creatinine 0.9 Est GFR (CKD-EPI)AfAm 93.35 Est GFR (CKD-EPI)NonAf 80.54 Random Glucose 75 Lactic Acid 1.6 Calcium 9.4 Phosphorus 4.5 Magnesium 2.4 Total Bilirubin 0.6 AST 14 L ALT 14 Alkaline Phosphatase 62 Total Protein 8.1 Albumin 4.3 Lipase 93 Serum , Qual Influenza A (Rapid) Influenza B (Rapid) 12/16/18 08:22 WBC RBC Hgb Hct MCV MCH MCHC RDW Plt Count MPV Absolute Neuts (auto) Neutrophils % Lymphocytes % Monocytes % Eosinophils % Basophils % Nucleated RBC % PT with INR INR PTT (Actin FS) Sodium Potassium Chloride Carbon Dioxide Anion Gap BUN Creatinine Est GFR (CKD-EPI)AfAm Est GFR (CKD-EPI)NonAf Random Glucose Lactic Acid Calcium Phosphorus Magnesium Total Bilirubin AST ALT Alkaline Phosphatase Total Protein Albumin Lipase Serum , Qual Negative Influenza A (Rapid) Influenza B (Rapid) Home Medications Medication Instructions Recorded Ondansetron HCl [Zofran] 4 mg PO TID PRN #12 tablet 12/15/18 Ondansetron HCl [Zofran] 4 mg PO TID PRN #12 tablet 12/15/18 ASSESSMENT AND PLAN: This is a 38 year old woman with a history of uterine fibroid; TOA; laparotomy with evacuation of pelvic abscesses, bilateral salpingectomy, left oophorectomy, myomectomy, appendectomy; laparotomy w/lysis of adhesions who presented to the ED with lower abdominal pain, nausea, vomiting x 2 days. 1. Small bowel obstruction - Likely secondary to adhesions - Maintain NGT - NPO - IVF - Surgery evaluation
[2018-12-16] MEDS ORDERED: ACETAMINOPHEN 1000 MG/100 ML VIAL (NON FORMULARY) IVPB PRN ×3 (11:57→14:53)
[2018-12-16 13:02] VITALS: BMI 25.7
--- NOTE | 2018-12-16 14:20 | CONSULT ---
Consult Consult Specialty:: General Surgery Referred by:: Ahmet Lopez Reason for Consultation:: SBO - History of Present Illness Chief Complaint: central, crampy abdominal pain, N/V History of Present Illness: 38yo F with h/o pelvic abscess in 2017 requiring surgery - had laparoscopy converted to laparotomy with evacuation of pelvic abscess, bilateral salpingectomy, left ovary noted in path specimen, myomectomy, appendectomy done at time of OR - believed to be secondary to TOA with secondary appendiceal inflammation; presented to ER with central, crampy abdominal pain starting Sunday associated with N/V. She initially presented to ER Sunday with symptoms , including attempts at self-induced vomiting to relieve the pain, which did not help much, but she was discharged with Zofran Rx and went home and had a couple episodes of N/V and persistent pain, so returned to ER late last night. Labs had been normal except for dry UA with some LE and bacteria present ( culture pending), and neg preg test. CT with IV but no oral contrast was done, showing SBO with probable transition area under umbilical region, likely due to adhesions from previous surgery. NG was placed in ER, and she was given fluids and admitted to medicine. Surgery is asked to assess. She is seen and examined in bed on the floor. NG with very little clear output. Tube adjusted slightly based on XR this am showing it in stomach, secured around 60cm at nares. Pt not currently having the pain. She reports having normal BMs up through yesterday morning. Denies F/C, headache, dysuria. She had been doing a juicing/smoothie regimen for weight loss for about a week up till the day before her symptoms started, and had just been resuming solid foods. She is and sexually active, but also denies vaginal discharge, pain or symptoms suggestive of infection, nor has her spouse had any. She feels a little better overall since tube placement. Repeat labs this morning are also normal - wbc, lytes; INR 1.25. - History Source History Provided By: Patient Limitations to Obtaining History: No Limitations - Past Medical History Cardio/Vascular: Yes: HTN (no home meds) Reproductive: Yes: Fibroids, Other (h/o TOA) ...LMP: 11/23/18 ...: No Heme/Onc: Yes: Anemia - Past Surgical History Past Surgical History: Yes: Appendectomy, Oopherectomy (left with bilateral salpingectomy) Additional Surgical History: 11/08 laparotomy with pelvic abscess evacuation, bilateral salpingectomy (evidence of TOA), left oophorectomy (ovary in pathology specimen), myomectomy, appendectomy (secondarily inflamed) [Gianfranco Pollack and Mima Mcmillan] - Alcohol/Substance Use Hx Alcohol Use: Yes (occasionally) History of Substance Use: reports: None - Smoking History Smoking history: Never smoked Have you smoked in the past 12 months: No - Social History Usual Living Arrangement: With Spouse ADL: Independent History of Recent Travel: No Home Medications - Allergies Allergies/Adverse Reactions: Allergies Allergy/AdvReac Type Severity Reaction Status Date / Time No Known Allergies Allergy Verified 12/16/18 00:22 - Home Medications Home Medications: Ambulatory Orders NK [No Known Home Medication] 12/16/18 Family Disease History - Family Disease History Family History: Denies (none per patient) Review of Systems - Review of Systems Constitutional: denies: Chills, Fever Eyes: denies: Blurred Vision, Recent Change in Vision HENT: denies: Difficult Swallowing, Throat Pain Neck: denies: Swollen Glands, Tenderness Cardiovascular: denies: Chest Pain, Palpitations Respiratory: denies: Cough, SOB Gastrointestinal: reports: Abdominal Pain (with hpi), Nausea (with hpi), Vomiting (with hpi). denies: Constipation, Diarrhea Genitourinary: denies: Burning, Dysuria Musculoskeletal: denies: Back Pain, Joint Pain, Muscle Pain Integumentary: denies: Change in Color, Rash Neurological: denies: Dizziness, Headache, Unsteady Gait Psychiatric: denies: Anxiety, Depression Physical Exam Vital Signs: Vital Signs Temperature 98.2 F 12/16/18 07:08 Pulse Rate 75 12/16/18 08:11 Respiratory Rate 18 12/16/18 08:11 Blood Pressure 120/76 12/16/18 08:11 O2 Sat by Pulse Oximetry (%) 100 12/16/18 08:11 Constitutional: Yes: Well Nourished, No Distress, Calm Eyes: Yes: Conjunctiva Clear, EOM Intact HENT: Yes: Atraumatic, Normocephalic, Other (NGT in place, clear minimal/scant output so far) Neck: Yes: Supple, Trachea Midline Cardiovascular: Yes: Regular Rate and Rhythm, Murmur (systolic) Respiratory: Yes: Regular, CTA Bilaterally Gastrointestinal: Yes: Normal Bowel Sounds, Soft. No: Distention, Tenderness ( minimal at umbilicus only, no eugenie/no guard), Tenderness, Epigastrium ...Rectal Exam: Yes: Deferred Renal/: No: CVA Tenderness - Left, CVA Tenderness - Right Musculoskeletal: No: Back Pain (no tenderness), Joint Stiffness, Joint Swelling Extremities: No: Cool, Cyanosis Edema: No Peripheral Pulses WNL: Yes Integumentary: No: Jaundice, Rash Neurological: Yes: Alert, Oriented Psychiatric: Yes: Alert, Oriented Labs: CBC, BMP 12/16/18 07:45 12/16/18 07:45 CMP Sodium 139 mmol/L (136-145) 12/16/18 07:45 Potassium 4.0 mmol/L (3.5-5.1) 12/16/18 07:45 Chloride 105 mmol/L (98-107) 12/16/18 07:45 Carbon Dioxide 25 mmol/L (21-32) 12/16/18 07:45 Anion Gap 8 MMOL/L (8-16) 12/16/18 07:45 BUN 13.7 mg/dL (7-18) 12/16/18 07:45 Creatinine 0.9 mg/dL (0.55-1.3) 12/16/18 07:45 Est GFR (CKD-EPI)AfAm 93.35 12/16/18 07:45 Est GFR (CKD-EPI)NonAf 80.54 12/16/18 07:45 Random Glucose 75 mg/dL (74-106) 12/16/18 07:45 Lactic Acid 1.6 mmol/L (0.4-2.0) 12/16/18 07:52 Calcium 9.4 mg/dL (8.5-10.1) 12/16/18 07:45 Phosphorus 4.5 mg/dL (2.5-4.9) 12/16/18 07:45 Magnesium 2.4 mg/dL (1.8-2.4) 12/16/18 07:45 Total Bilirubin 0.6 mg/dL (0.2-1) 12/16/18 07:45 AST 14 U/L (15-37) L 12/16/18 07:45 ALT 14 U/L (13-61) 12/16/18 07:45 Alkaline Phosphatase 62 U/L (45-117) 12/16/18 07:45 Total Protein 8.1 g/dl (6.4-8.2) 12/16/18 07:45 Albumin 4.3 g/dl (3.4-5.0) 12/16/18 07:45 Lipase 93 U/L (73-393) 12/16/18 07:45 Serum , Qual Negative 12/16/18 08:22 INR, PTT INR 1.25 (0.83-1.09) H 12/16/18 07:45 UA from yesterday with LE, bacteria; Sp Grav 1.023, ketones 2+ ; pt denies symptoms, culture pending glucose 75 lytes and lactate normal Imaging - Results Chest X-ray: Report Reviewed, Image Reviewed (NGT noted in stomach) Cat Scan: Report Reviewed, Image Reviewed (images reviewed - dilated SB loops with transition underneath umbilical area, fecalized distal loop of SB, little bit of fluid/ascites, no free air, no oral contrast given, likely fibroid in uterus) Problem List - Problems (1) Small bowel obstruction due to adhesions Assessment/Plan: admitted to medicine continue NPO/NGT/IVF - strict NPO/no meds, ice chips or anything down tube yet low continuous suction for NG (80-100) will change fluids to maintenance serial exams and AXR will need oral contrast down tube at some point to follow past point of obstruction - not today, will consider in 1-2 days trend labs f/u urine cx from yesterday agree with IV tylenol first line for pain prn GI/DVT prophylaxis zofran prn OOB/ambulate, ok with tube clamped temporarily while ambulating will follow with you Thank you for the opportunity to participate in the care of this patient. discussed with patient potential for surgical intervention if conservative treatment fails given note of previous extensive adhesions at first operation, would like to avoid if at all possible pt understands and agrees with plan discussed with Dr. Babin Code(s): K56.50 - INTESTNL ADHESIONS, UNSP TO PARTIAL VERSUS COMPLETE OBST (2) Periumbilical pain Assessment/Plan: not currently present Code(s): R10.33 - PERIUMBILICAL PAIN (3) Nausea & vomiting Assessment/Plan: improved Code(s): R11.2 - NAUSEA WITH VOMITING, UNSPECIFIED Qualifiers: Vomiting type: unspecified Vomiting Intractability: non-intractable Qualified Code(s): R11.2 - Nausea with vomiting, unspecified (4) Uterine fibroid Code(s): D25.9 - LEIOMYOMA OF UTERUS, UNSPECIFIED Qualifiers: Uterine leiomyoma location: intramural Qualified Code(s): D25.1 - Intramural leiomyoma of uterus
[2018-12-16] MEDS: D5-1/2NS+20 MEQ KCL - 20 MEQ/1,000 ML INFUS.BAG IV SCH (16:07)
[2018-12-16] MEDS: FAMOTIDINE 20 MG/50 ML IVPB 20 MG/50 ML MG IVPB SCH (21:48)
[2018-12-17 08:37] LABS: BASO % 0.7 % (0-2.0); BLOOD UREA NITROGEN 9.3 mg/dL (7-18); CALCIUM 8.5 mg/dL (8.5-10.1); CREATININE 0.7 mg/dL (0.55-1.3); EOS % 10.2 % (0-4.5); HEMATOCRIT 30.9 % (32.4-45.2); HEMOGLOBIN 10.5 GM/dL (10.7-15.3); LYMPH % 41.7 % (8-40); MCH 29.6 pg (25.7-33.7); MCHC 33.9 g/dl (32.0-36.0); MEAN CELL VOLUME 87.4 fl (80-96); MEAN PLT VOLUME 8.9 fl (7.5-11.1); MONO % 9.9 % (3.8-10.2); NEUT % 37.5 % (42.8-82.8); PHOSPHOROUS 3.5 mg/dL (2.5-4.9); POTASSIUM 3.5 mmol/L (3.5-5.1); RBC 3.54 M/mm3 (3.60-5.2); RDW 13.9 % (11.6-15.6); WHITE BLOOD COUNT 3.9 K/mm3 (4.0-10.0)
[2018-12-17 09:12] LABS: PLATELET COUNT 178 K/MM3 (134-434)
--- NOTE | 2018-12-17 10:37 | EKG ---
Test Reason : Blood Pressure : / mmHG Vent. Rate : 071 BPM Atrial Rate : 071 BPM P-R Int : 180 ms QRS Dur : 072 ms QT Int : 380 ms P-R-T Axes : 068 036 048 degrees QTc Int : 412 ms NORMAL SINUS RHYTHM NONSPECIFIC T WAVE ABNORMALITY ABNORMAL ECG NO PREVIOUS ECGS AVAILABLE Confirmed by Manjit Watkins MD ([id number]) on 12/17/2018 10:36:34 AM Referred By: Confirmed By:Manjit Watkins MD
[2018-12-17] MEDS: FAMOTIDINE 20 MG/50 ML IVPB 20 MG/50 ML MG IVPB SCH ×2 (11:07→22:33)
--- NOTE | 2018-12-17 12:51 | PN ---
Physical Exam: SUBJECTIVE: Patient seen and examined at bedside. Pt reports feeling OBJECTIVE: Vital Signs Temperature 98.4 F 12/17/18 06:38 Pulse Rate 62 12/17/18 06:38 Respiratory Rate 20 12/17/18 06:38 Blood Pressure 128/88 12/17/18 06:38 O2 Sat by Pulse Oximetry (%) 100 12/16/18 08:11 GENERAL: Pleasant. NAD. AAOx3. HEAD: Normal with no signs of trauma. EYES: Pupils equal, round and reactive to light, extraocular movements intact, sclera anicteric, conjunctiva clear. EARS, NOSE, THROAT: Ears normal, nares patent, oropharynx clear without exudates. Moist mucous membranes. NECK: Normal range of motion, supple LUNGS: CTA B/L. No wheezes, rhonchi, rales noted. HEART: Regular rate and rhythm, normal S1 and S2 without murmur, rub or gallop. ABDOMEN: Soft, obese, nontender, not distended, +normoactive bowel sounds, no guarding LOWER EXTREMITIES: 2+ pt pulses, warm, well-perfused. No calf tenderness. No peripheral edema. NEUROLOGICAL: Cranial nerves II-XII intact. Normal speech. PSYCHIATRIC: Cooperative. Good eye contact. CBCD WBC 3.9 K/mm3 (4.0-10.0) L 12/17/18 07:35 RBC 3.54 M/mm3 (3.60-5.2) L 12/17/18 07:35 Hgb 10.5 GM/dL (10.7-15.3) L 12/17/18 07:35 Hct 30.9 % (32.4-45.2) L D 12/17/18 07:35 MCV 87.4 fl (80-96) 12/17/18 07:35 MCHC 33.9 g/dl (32.0-36.0) 12/17/18 07:35 RDW 13.9 % (11.6-15.6) 12/17/18 07:35 Plt Count 178 K/MM3 (134-434) 12/17/18 07:35 MPV 8.9 fl (7.5-11.1) 12/17/18 07:35 CMP Sodium 143 mmol/L (136-145) 12/17/18 07:35 Potassium 3.5 mmol/L (3.5-5.1) 12/17/18 07:35 Chloride 111 mmol/L (98-107) H 12/17/18 07:35 Carbon Dioxide 25 mmol/L (21-32) 12/17/18 07:35 Anion Gap 7 MMOL/L (8-16) L 12/17/18 07:35 BUN 9.3 mg/dL (7-18) 12/17/18 07:35 Creatinine 0.7 mg/dL (0.55-1.3) 12/17/18 07:35 Calcium 8.5 mg/dL (8.5-10.1) 12/17/18 07:35 Total Bilirubin 0.6 mg/dL (0.2-1) 12/16/18 07:45 AST 14 U/L (15-37) L 12/16/18 07:45 ALT 14 U/L (13-61) 12/16/18 07:45 Alkaline Phosphatase 62 U/L (45-117) 12/16/18 07:45 Total Protein 8.1 g/dl (6.4-8.2) 12/16/18 07:45 Albumin 4.3 g/dl (3.4-5.0) 12/16/18 07:45 Active Medications Acetaminophen (Ofirmev Injection -) 1,000 mg IVPB Q6H PRN PRN Reason: Pain Level 4 - 10 Potassium Chloride/Dextrose/Sod Cl (D5-1/2ns+20 Meq Kcl -) 20 meq in 1,000 mls @ 100 mls/hr IV ASDIR [facility] Last Admin: 12/16/18 16:07 Dose: 100 mls/hr Famotidine/Sodium Chloride (Pepcid 20 Mg Premixed Ivpb -) 20 mg in 50 mls @ 100 mls/hr IVPB BID [facility] Last Admin: 12/17/18 11:07 Dose: 100 mls/hr IMAGING: * EKG: requested, pending * CTAP: Distended loops of small bowel up to 4 cm w/ fecalization in the small bowel in R to mid to lower abd. Umbilical laxity of the midline rectus w/ distended loop of small bowel in that region. This could be area of obstruction. There is retention of stool. Hiatal hernia. Findings are c/w SBO as described. Mild ascites. No free air seen. Retention of stool. Possible fibroid uterus with mass. Correlate with nonemergent pelvic sonography. * AXR: Small bowel distension is slightly less than that seen on 12/16/18 when a small bowel obstruction was noted. ASSESSMENT/PLAN: 38 y/o F with PMH s/p salpingectomy/myomectomy/appendectomy w/ intraperitoneal loculated abscesses (drained) 2015, laparotomy w/ lysis of adhesions, who presents to the ED c/o lower abdominal pain and NBNB emesis since Sunday. #High grade SBO likely 2/2 Adhesions -Pt's abd pain has improved this AM, admits to passing flatus, has mild nausea, and no more vomiting. Hold NG tube for now -Afebrile, no leukocytosis, lactic WNL -Per surg, will do PO contrast and check AXR for passage of colon. If passage present, can start clear in AM. AXR ordered for 6pm tonight. -IV Tylenol for pain PRN, Zofran for nausea PRN -replete lytes PRN #Normocytic Anemia; likely dilutional. No signs of bleeding -will trend CBC and cont to monitor #FEN -D5-1/2NS @ 100 -recheck lytes in AM -NPO for now; can start CLD pending AXR #PPX DVT: early ambulation/OOB #Dispo -cont to monitor on med-surg Visit type - Emergency Visit Emergency Visit: Yes ED Registration Date: 12/16/18 Care time: The patient presented to the Emergency Department on the above date and was hospitalized for further evaluation of their emergent condition. - New Patient This patient is new to me today: Yes Date on this admission: 12/17/18 - Critical Care Critical Care patient: No
--- NOTE | 2018-12-17 13:40 | PN ---
Progress Note, Physician History of Present Illness: Pt with SBO presumed secondary to adhesions. NGT came out this morning. Pt has passed gas but no BM yet. No nausea currently, no pain. Feels like she could move bowels soon, but hasn't been able to yet. Ambulatory. Seen and examined in bed with present. - Current Medication List Current Medications: Active Medications Acetaminophen (Ofirmev Injection -) 1,000 mg IVPB Q6H PRN PRN Reason: Pain Level 4 - 10 Potassium Chloride/Dextrose/Sod Cl (D5-1/2ns+20 Meq Kcl -) 20 meq in 1,000 mls @ 100 mls/hr IV ASDIR [facility] Last Admin: 12/16/18 16:07 Dose: 100 mls/hr Famotidine/Sodium Chloride (Pepcid 20 Mg Premixed Ivpb -) 20 mg in 50 mls @ 100 mls/hr IVPB BID [facility] Last Admin: 12/17/18 11:07 Dose: 100 mls/hr - Objective Vital Signs: Vital Signs Temperature 98.4 F 12/17/18 06:38 Pulse Rate 62 12/17/18 06:38 Respiratory Rate 20 12/17/18 06:38 Blood Pressure 128/88 12/17/18 06:38 O2 Sat by Pulse Oximetry (%) 100 12/16/18 08:11 Constitutional: Yes: Well Nourished, No Distress, Calm Eyes: Yes: Conjunctiva Clear, EOM Intact HENT: Yes: Atraumatic, Normocephalic Gastrointestinal: Yes: Normal Bowel Sounds, Soft. No: Distention, Tenderness, Tenderness, Epigastrium Extremities: No: Cool, Cyanosis Integumentary: Yes: Tattoos. No: Jaundice, Rash Neurological: Yes: Alert, Oriented. No: Unsteady Gait Labs: CBC, BMP 12/17/18 07:35 12/17/18 07:35 K down a little, getting fluids w/K in them - ....Imaging X-ray: Report Reviewed, Image Reviewed (KUB just taken reviewed - air in SB loops and colon, no contrast yet given, so cannot determine if obstruction is truly resolving, less SB dilation present) Problem List - Problems (1) Small bowel obstruction due to adhesions Assessment/Plan: continue NPO/IVF pt without nausea, pain improved, no sig tenderness passing flatus will give oral contrast and check AXR for passage into colon if contrast passes, could start clears in am if no contrast in colon by tomorrow, would repeat CT trend labs, watch lytes tylenol first line for pain prn GI/DVT prophylaxis zofran prn OOB/ambulate urine cx from with <10K growth Code(s): K56.50 - INTESTNL ADHESIONS, UNSP TO PARTIAL VERSUS COMPLETE OBST (2) Periumbilical pain Code(s): R10.33 - PERIUMBILICAL PAIN (3) Nausea & vomiting Assessment/Plan: resolved if N/V with contrast, would replace NGT to low cont suction see above Code(s): R11.2 - NAUSEA WITH VOMITING, UNSPECIFIED Qualifiers: Vomiting type: unspecified Vomiting Intractability: non-intractable Qualified Code(s): R11.2 - Nausea with vomiting, unspecified (4) Uterine fibroid Code(s): D25.9 - LEIOMYOMA OF UTERUS, UNSPECIFIED Qualifiers: Uterine leiomyoma location: intramural Qualified Code(s): D25.1 - Intramural leiomyoma of uterus
--- NOTE | 2018-12-17 14:31 | PN ---
Teaching Attending Note Name of Resident: Kera Maciel ATTENDING PHYSICIAN STATEMENT I saw and evaluated the patient. I reviewed the resident's note and discussed the case with the resident. I agree with the resident's findings and plan as documented. SUBJECTIVE:slightly nauseated but states pain has resolved. requesting water. passing flatus. has urge to defecate. denies Cp, SOB, fever, chills, V/C/D NGT fell out this AM in the bathroom OBJECTIVE: Last Vital Signs Temp Pulse Resp BP Pulse Ox 98.4 F 62 20 128/88 100 12/17/18 06:38 12/17/18 06:38 12/17/18 09:00 12/17/18 06:38 12/16/18 08:11 General NAD CV S1 s2 RRR no murmur/rub/gallop Lungs CTA B/L no wheezing/rales/rhonchi Abdomen soft NT/ND normoactive BS, no guarding ASSESSMENT AND PLAN: 38 year old woman with a history of uterine fibroid; TOA; laparotomy 11/17/15 with evacuation of pelvic abscesses, bilateral salpingectomy, left oophorectomy , myomectomy, appendectomy; laparotomy w/lysis of adhesions who presented to the ED with lower abdominal pain, nausea, vomiting x 2 days and found to have SBO 1. SBO- due to adhesions. clinically improved. NGT fell out but had minimal output prior to that. +BS and flatus. would hold on replacing NGT and repeat AXR and evaluate for resolution. if resolved can consider advancing diet to liquids to see if tolerates. surgery on board. pain and nausea control 2. Normocytic anemia- dilutional component. likely dehydrated when arrived. no signs of bleeding. will monitor. no indication for transfusion 3. DVT ppx- start hep sq
[2018-12-17] MEDS: HEPARIN NA (PORCINE) 5,000 UNITS/ML 1ML VIAL SQ SCH (22:33)
[2018-12-18] MEDS: HEPARIN NA (PORCINE) 5,000 UNITS/ML 1ML VIAL SQ SCH ×3 (06:52→22:03)
[2018-12-18 08:20] LABS: HEMATOCRIT 29.6 % (32.4-45.2); HEMOGLOBIN 10.2 GM/dL (10.7-15.3); MCH 29.9 pg (25.7-33.7); MCHC 34.6 g/dl (32.0-36.0); MEAN CELL VOLUME 86.5 fl (80-96); MEAN PLT VOLUME 9.6 fl (7.5-11.1); PLATELET COUNT 156 K/MM3 (134-434); RBC 3.43 M/mm3 (3.60-5.2); RDW 13.8 % (11.6-15.6); WHITE BLOOD COUNT 3.2 K/mm3 (4.0-10.0)
[2018-12-18 08:50] LABS: BLOOD UREA NITROGEN 4.6 mg/dL (7-18); CALCIUM 8.5 mg/dL (8.5-10.1); CREATININE 0.7 mg/dL (0.55-1.3); POTASSIUM 3.9 mmol/L (3.5-5.1)
[2018-12-18] MEDS: D5-1/2NS+20 MEQ KCL - 20 MEQ/1,000 ML INFUS.BAG IV SCH ×3 (10:07→22:07)
[2018-12-18] MEDS: FAMOTIDINE 20 MG/50 ML IVPB 20 MG/50 ML MG IVPB SCH ×2 (10:08→22:03)
--- NOTE | 2018-12-18 10:12 | PN ---
Physical Exam: SUBJECTIVE: Patient seen and examined at bedside. No acute events overnight. Denies f/c, n/v, abd pain, urinary/bowel symptoms. Pt admits to having a bowel movement--formed stool, brown, non-bloody. Feels much better today. OBJECTIVE: Vital Signs Period Temp Pulse Resp BP Sys/Gutierres Pulse Ox Last 24 Hr 97.8 F-98.3 F 52-60 20-20 119-148/70-89 GENERAL: Pleasant. NAD. AAOx3. HEENT: AT/MC. Moist mucus membranes. NECK: Normal range of motion, supple LUNGS: CTA B/L. No wheezes, rhonchi, rales noted. HEART: Regular rate and rhythm, normal S1 and S2 without murmur, rub or gallop. ABDOMEN: Soft, obese, nontender, not distended, +normoactive bowel sounds, no guarding or rebound tenderness. LOWER EXTREMITIES: 2+ pt pulses, warm, well-perfused. No calf tenderness. No peripheral edema. NEUROLOGICAL: Cranial nerves II-XII intact. Normal speech. PSYCHIATRIC: Cooperative. Good eye contact. Laboratory Results - last 24 hr 12/18/18 12/18/18 07:50 07:50 WBC 3.2 L RBC 3.43 L Hgb 10.2 L Hct 29.6 L MCV 86.5 MCH 29.9 MCHC 34.6 RDW 13.8 Plt Count 156 MPV 9.6 Sodium 142 Potassium 3.9 Chloride 110 H Carbon Dioxide 26 Anion Gap 6 L BUN 4.6 L Creatinine 0.7 Est GFR (CKD-EPI)AfAm 126.49 Est GFR (CKD-EPI)NonAf 109.14 Random Glucose 83 Calcium 8.5 Active Medications Acetaminophen (Ofirmev Injection -) 1,000 mg IVPB Q6H PRN PRN Reason: Pain Level 4 - 10 Heparin Sodium (Porcine) (Heparin -) 5,000 unit SQ TID [facility] Last Admin: 12/18/18 06:52 Dose: 5,000 unit Potassium Chloride/Dextrose/Sod Cl (D5-1/2ns+20 Meq Kcl -) 20 meq in 1,000 mls @ 100 mls/hr IV ASDIR [facility] Last Admin: 12/18/18 10:07 Dose: 100 mls/hr Famotidine/Sodium Chloride (Pepcid 20 Mg Premixed Ivpb -) 20 mg in 50 mls @ 100 mls/hr IVPB BID [facility] Last Admin: 12/18/18 10:08 Dose: 100 mls/hr IMAGING: * EKG: requested, pending * CTAP: Distended loops of small bowel up to 4 cm w/ fecalization in the small bowel in R to mid to lower abd. Umbilical laxity of the midline rectus w/ distended loop of small bowel in that region. This could be area of obstruction. There is retention of stool. Hiatal hernia. Findings are c/w SBO as described. Mild ascites. No free air seen. Retention of stool. Possible fibroid uterus with mass. Correlate with nonemergent pelvic sonography. * AXR (12/17/18): Small bowel distension is slightly less than that seen on when a small bowel obstruction was noted. * AXR (12/17/18 @ 6pm) with PO contrast: Contrast in dilated loops of small bowel with air-fluid levels along w/ contrast in colon. This indicates partial SBO follow up recommended. No sign of free air. Some pleural fluid at R base. * AXE (12/18/18 @ 7am): Further progression of contrast into colon w/ some persistently air dilated loops of small bowel indicative of partial SBO or partially resolving SBO. Some pleural reaction and atelectasis in posterior sulcus on R. ASSESSMENT/PLAN: 38 y/o F with PMH s/p salpingectomy/myomectomy/appendectomy w/ intraperitoneal loculated abscesses (drained) 2016, laparotomy w/ lysis of adhesions, who presents to the ED c/o lower abdominal pain and NBNB emesis found to have a small bowel obstruction. #High grade SBO likely 2/2 Adhesions -Pt asymptomatic this morning; +BM after having PO contrast--no bloody, formed stool. No n/v, f/c, abd pain, +BS. Clinically, pt's symptoms have improved. -Repeat AXR this AM results noted above; shows further progression of PO contrast into colon w/ some persistently air dilated loops of SB indicative of partial SBO or partially resolving SBO. Will follow up surgical recs and possibly advance diet to clears. -IV Tylenol for pain PRN, Zofran for nausea PRN -Replete lytes PRN -Pepcid 20 mg IVPB BID #Normocytic Anemia; likely dilutional. No signs of bleeding -will trend CBC and cont to monitor #FEN -D5-1/2NS @ 100 -recheck lytes in AM -NPO for now; can start CLD pending AXR #PPX DVT: early ambulation/OOB #Dispo -cont to monitor on med-surg Visit type - Emergency Visit Emergency Visit: Yes ED Registration Date: 12/16/18 Care time: The patient presented to the Emergency Department on the above date and was hospitalized for further evaluation of their emergent condition. - New Patient This patient is new to me today: No - Critical Care Critical Care patient: No
--- NOTE | 2018-12-18 11:36 | PN ---
Teaching Attending Note Name of Resident: Kera Maciel ATTENDING PHYSICIAN STATEMENT I reviewed the resident's note and discussed the case with the resident. I agree with the resident's findings and plan as documented. SUBJECTIVE:pt was down for imaging. reported by resident to have no complaints with BM this AM OBJECTIVE: Last Vital Signs Temp Pulse Resp BP Pulse Ox 98.3 F 52 L 20 119/70 100 12/18/18 07:48 12/18/18 07:48 12/18/18 07:48 12/18/18 07:48 12/16/18 08:11 ASSESSMENT AND PLAN: 38 year old woman with a history of uterine fibroid; TOA; laparotomy 11/17/15 with evacuation of pelvic abscesses, bilateral salpingectomy, left oophorectomy , myomectomy, appendectomy; laparotomy w/lysis of adhesions who presented to the ED with lower abdominal pain, nausea, vomiting x 2 days and found to have SBO 1. SBO- due to adhesions. clinically improved. AXR with contrast yesterday showed no contrast in colon. pt down for repeat this AM. reported to have BM this AM. will f/u repeat AXR. assess pt later. if improved and contrast seen will advance to liquid diet. for now cont NPO and IVF. surgery on board. pain and nausea control 2. Normocytic anemia- dilutional component. likely dehydrated when arrived. no signs of bleeding. will monitor. no indication for transfusion 3. DVT ppx- hep sq
--- NOTE | 2018-12-18 15:02 | PN ---
Progress Note, Physician History of Present Illness: Pt with SBO presumed secondary to adhesions. NGT out yesterday morning. Pt is passing gas and has had 3 soft/loose BMs. No nausea currently, no pain. Seen and examined in bed. Feels hungry. Had ice chips last night. AXR done this morning shows contrast all in colon, less distended SB loops. - Current Medication List Current Medications: Active Medications Acetaminophen (Ofirmev Injection -) 1,000 mg IVPB Q6H PRN PRN Reason: Pain Level 4 - 10 Heparin Sodium (Porcine) (Heparin -) 5,000 unit SQ TID [facility] Last Admin: 12/18/18 14:00 Dose: Not Given Potassium Chloride/Dextrose/Sod Cl (D5-1/2ns+20 Meq Kcl -) 20 meq in 1,000 mls @ 100 mls/hr IV ASDIR [facility] Last Admin: 12/18/18 10:07 Dose: 100 mls/hr Famotidine/Sodium Chloride (Pepcid 20 Mg Premixed Ivpb -) 20 mg in 50 mls @ 100 mls/hr IVPB BID [facility] Last Admin: 12/18/18 10:08 Dose: 100 mls/hr - Objective Vital Signs: Vital Signs Temperature 97.9 F 12/18/18 10:05 Pulse Rate 54 L 12/18/18 10:05 Respiratory Rate 20 12/18/18 10:05 Blood Pressure 129/74 12/18/18 10:05 O2 Sat by Pulse Oximetry (%) 100 12/16/18 08:11 Constitutional: Yes: Well Nourished, No Distress, Calm Eyes: Yes: Conjunctiva Clear, EOM Intact HENT: Yes: Atraumatic, Normocephalic Gastrointestinal: Yes: Normal Bowel Sounds, Soft. No: Distention (some tympany upper but minimal distention), Tenderness Extremities: No: Cool, Cyanosis Integumentary: No: Jaundice, Rash Neurological: Yes: Alert, Oriented Labs: CBC, BMP 12/18/18 07:50 12/18/18 07:50 - ....Imaging X-ray: Report Reviewed, Image Reviewed (images reviewed - contrast all in colon , less SB distention, still some gas in SB as well as colon) Problem List - Problems (1) Small bowel obstruction due to adhesions Assessment/Plan: resolving/resolved partial SBO, may have chronic component no pain or tenderness passing flatus, + bowel function, evacuating contrast will start clears for tonight - if tolerated, can do fulls in am and advance from there as tolerated tylenol first line for pain prn GI/DVT prophylaxis zofran prn OOB/ambulate discussed with Dr. Araya Code(s): K56.50 - INTESTNL ADHESIONS, UNSP TO PARTIAL VERSUS COMPLETE OBST (2) Periumbilical pain Assessment/Plan: resolved Code(s): R10.33 - PERIUMBILICAL PAIN (3) Nausea & vomiting Assessment/Plan: resolved Code(s): R11.2 - NAUSEA WITH VOMITING, UNSPECIFIED Qualifiers: Vomiting type: unspecified Vomiting Intractability: non-intractable Qualified Code(s): R11.2 - Nausea with vomiting, unspecified (4) Uterine fibroid Code(s): D25.9 - LEIOMYOMA OF UTERUS, UNSPECIFIED Qualifiers: Uterine leiomyoma location: intramural Qualified Code(s): D25.1 - Intramural leiomyoma of uterus
[2018-12-19] MEDS: HEPARIN NA (PORCINE) 5,000 UNITS/ML 1ML VIAL SQ SCH ×3 (05:27→21:00)
[2018-12-19] MEDS: FAMOTIDINE 20 MG/50 ML IVPB 20 MG/50 ML MG IVPB SCH (09:37)
--- NOTE | 2018-12-19 14:05 | PN ---
Teaching Attending Note Name of Resident: Kera Maciel ATTENDING PHYSICIAN STATEMENT I saw and evaluated the patient. I reviewed the resident's note and discussed the case with the resident. I agree with the resident's findings and plan as documented. SUBJECTIVE:asymptomatic. pain resolved. tolerated full liquid diet. had 3 BM since yesterday. denies Cp, SOB, fever, chills, N/V/C/D OBJECTIVE: Last Vital Signs Temp Pulse Resp BP Pulse Ox 97.8 F 50 L 20 107/65 100 12/19/18 06:39 12/19/18 06:39 12/19/18 06:39 12/19/18 06:39 12/16/18 08:11 General NAD Abdomen soft NT/ND normal BS ASSESSMENT AND PLAN: 38 year old woman with a history of uterine fibroid; TOA; laparotomy 11/17/15 with evacuation of pelvic abscesses, bilateral salpingectomy, left oophorectomy , myomectomy, appendectomy; laparotomy w/lysis of adhesions who presented to the ED with lower abdominal pain, nausea, vomiting x 2 days and found to have SBO 1. SBO- due to adhesions. clinically improved. tolerated full liquid diet. having BM which are soft. will advance to regular diet. if tolerated can d/c home [facility] follow up. 2. Normocytic anemia- dilutional component. likely dehydrated when arrived. no signs of bleeding. will monitor. no indication for transfusion 3. DVT ppx- hep sq 4. if tolerates diet will d/c home later today
--- NOTE | 2018-12-19 14:16 | DS ---
Physical Exam: SUBJECTIVE: Patient seen and examined at bedside. No acute events overnight. OBJECTIVE: Vital Signs Period Temp Pulse Resp BP Sys/Gutierres Pulse Ox Last 24 Hr 97.8 F-98.3 F 48-56 16-20 107-132/65-75 PHYSICAL EXAM GENERAL: Pleasant. NAD. AAOx3. HEENT: AT/MC. Moist mucus membranes. NECK: Normal range of motion, supple LUNGS: CTA B/L. No wheezes, rhonchi, rales noted. HEART: Regular rate and rhythm, normal S1 and S2 without murmur, rub or gallop. ABDOMEN: Soft, obese, nontender, not distended, +normoactive bowel sounds, no guarding or rebound tenderness. LOWER EXTREMITIES: 2+ pt pulses, warm, well-perfused. No calf tenderness. No peripheral edema. NEUROLOGICAL: Cranial nerves II-XII intact. Normal speech. PSYCHIATRIC: Cooperative. Good eye contact. LABS HOSPITAL COURSE: Date of Admission:12/16/18 IMAGING: * EKG: requested, pending * CTAP: Distended loops of small bowel up to 4 cm w/ fecalization in the small bowel in R to mid to lower abd. Umbilical laxity of the midline rectus w/ distended loop of small bowel in that region. This could be area of obstruction. There is retention of stool. Hiatal hernia. Findings are c/w SBO as described. Mild ascites. No free air seen. Retention of stool. Possible fibroid uterus with mass. Correlate with nonemergent pelvic sonography. * AXR (12/17/18): Small bowel distension is slightly less than that seen on when a small bowel obstruction was noted. * AXR (12/17/18 @ 6pm) with PO contrast: Contrast in dilated loops of small bowel with air-fluid levels along w/ contrast in colon. This indicates partial SBO follow up recommended. No sign of free air. Some pleural fluid at R base. * AXE (12/18/18 @ 7am): Further progression of contrast into colon w/ some persistently air dilated loops of small bowel indicative of partial SBO or partially resolving SBO. Some pleural reaction and atelectasis in posterior sulcus on R. 38F with pmhx s/p salpingectomy/myomectomy/appendectomy w/ intraperitoneal loculated abscesses (drained) 2015, laparotomy w/ lysis of adhesions presented to the ED c/o lower abdominal pain and NBNB emesis found to have a small bowel obstruction. CTAP was done that showed findings suggestive of obstruction; results noted above. Per surg recs, pt was made NPO, NG tube placed with intermittent suction, and IVf started. Throughout hospital stay, pt's symptoms of n/v/abd pain improved. Abd xray with PO contrast was done x2 and showed progression of PO contrasting into colon. As a result, diet was advanced and pt tolerated well. Pt also had multiple BM, normal, nonbloody. She was discharged home and advised to follow up with her PCP and GI for routine outpatient evaluation. Date of Discharge: 12/19/18 Minutes to complete discharge: 35 Discharge Summary Reason For Visit: SMALL BOWEL OBSTRUCTION Condition: Improved - Instructions Diet, Activity, Other Instructions: You were seen in the hospital after complaints of nausea, vomiting, and abdominal pain. A CT scan of your abdomen was done that showed a small bowel obstruction. You were evaluated by a surgeon with no need for emergent surgical intervention this admission. You were placed on bowel rest and your symptoms improved. You are now being discharged home. FOLLOW UP Please follow up with your primary care physician, Dr. Edwards, within 1 week. Please follow up with your surgeon, Dr. Pena, within 1 week. If you experience worsening abdominal pain/cramping, abdominal distension, persistent fever/chills, inability to tolerate food due to extreme pain/nausea/ vomiting, please proceed to your nearest emergency room immediately. Referrals: Miriam Edwards MD [Primary Care Provider] - Ariel Shirley DO [Staff Physician] - Disposition: HOME - Home Medications Comprehensive Discharge Medication List: Ambulatory Orders NK [No Known Home Medication] 12/16/18 This patient is new to me today: No Emergency Visit: Yes ED Registration Date: 12/16/18 Care time: The patient presented to the Emergency Department on the above date and was hospitalized for further evaluation of their emergent condition. Critical Care patient: No - Discharge Referral Referred to [facility] Med P.C[facility] Yes Physician Referral: Adolfo Shirley DO (GI)
[2018-12-19 20:40] VITALS: BP 137/87; PULSE 64; TEMP 97.9
== END 2018-12-19 21:05 | disposition home or self-care (01) | DRG 247 ==
LOC: JER 23:49 → JERBED 12-16 07:08 → J8W 12-16 11:02
PROVIDERS: ADMIT Internal Medicine; ATTEND Internal Medicine
PROC: 0D9670Z Drainage of Stomach with Drainage Device, Via Natural or Artificial Opening (ICD-10-PCS; principal; 2018-12-16)
DX: K56.50 Intestinal adhesions [bands], unspecified as to partial versus complete obstruction (principal); I10 Essential (primary) hypertension; R11.2 Nausea with vomiting, unspecified; D25.1 Intramural leiomyoma of uterus; R10.33 Periumbilical pain; D64.9 Anemia, unspecified; D25.9 Leiomyoma of uterus, unspecified
CPT/HCPCS: 36415; 71045-TC-FY; 74018-TC-FY; 74019-TC-FY; 74177-TC; 80048; 80053; 83605; 83690; 83735; 84100; 84703; 85025; 85027; 85610; 85730; 86850; 86900; 86901; 87804; 93005; 93010; 97116-GP; 97161-GP; 99285-25; J1644